=== PATIENT | female | born 1990 | race Two or more races ===

== ENCOUNTER 2016-12-01 18:14 | Emergency (ER) | payer SELFPAY ==
--- NOTE | 2016-12-01 19:13 | ER Document Report ---
ED GI/ - General Chief Complaint: Flank Pain Stated Complaint: RIGHT SIDE PAIN Time Seen by Provider: 12/01/16 18:29 Mode of Arrival: Ambulatory Information source: Patient TRAVEL OUTSIDE OF THE [place] IN LAST 30 DAYS: No - HPI Patient complains to provider of: Dysuria, Flank pain Onset: Other - 2-3 days Timing/Duration: Persistent Quality of pain: Achy Severity at maximum: Moderate Severity in ED: Moderate Location: Right flank Associated symptoms: Dysuria, Urinary hesitancy, Urinary frequency, Urinary urgency Exacerbated by: Denies Relieved by: Denies Similar symptoms previously: No Recently seen / treated by doctor: No Notes: 12/01/16 19:12 Patient is a 25-year-old female presenting to the emergency room today complaining of dysuria with urinary frequency and urgency, states it feels as though she is going to urinate on herself if she does not get to the bathroom quickly enough, symptoms have been going on for the past 2-3 days, she denies any fever, no vaginal discharge, no nausea, vomiting or diarrhea - Related Data Allergies/Adverse Reactions: iodine [Iodine] Adverse Reaction (Verified 12/01/16 18:22) swelling Past Medical History - General Information source: Patient - Social History Smoking Status: Former Smoker Frequency of alcohol use: Occasional Family History: Arthritis, CAD, CVA, DM, Hyperlipidemia, Hypertension, Malignancy. denies: Thyroid Disfunction - Past Medical History Cardiac Medical History: Reports: Hx Hypertension - pre eclampsia Neurological Medical History: Reports: Hx Migraine Renal/ Medical History: Denies: Hx Peritoneal Dialysis GI Medical History: Reports: Hx Gastritis, Hx Colonoscopy Psychiatric Medical History: Reports: Hx Anxiety, Hx Depression Past Surgical History: Reports: Hx Oral Surgery - wisdom - Immunizations Hx Diphtheria, Pertussis, Tetanus Vaccination: Yes Review of Systems - Review of Systems Constitutional: No symptoms reported EENT: No symptoms reported Cardiovascular: No symptoms reported Respiratory: No symptoms reported Gastrointestinal: No symptoms reported Genitourinary: See HPI Female Genitourinary: No symptoms reported Musculoskeletal: No symptoms reported Skin: No symptoms reported Hematologic/Lymphatic: No symptoms reported Neurological/Psychological: No symptoms reported -: Yes All other systems reviewed and negative Physical Exam - Vital signs Vitals: Temp Pulse Resp BP Pulse Ox 98.4 F 69 14 121/62 99 12/01/16 18:23 12/01/16 18:23 12/01/16 18:23 12/01/16 18:23 12/01/16 18:23 - Notes Notes: - General General appearance: Appears well, Alert In distress: None - HEENT Head: Normocephalic, Atraumatic Eyes: Normal Conjunctiva: Normal Extraocular movements intact: Yes Eyelashes: Normal Pupils: PERRL - Respiratory Respiratory status: No respiratory distress - Cardiovascular Rhythm: Regular - Abdominal Inspection: Normal - Back Back: Normal - Extremities General upper extremity: Normal inspection General lower extremity: Normal inspection - Neurological Neuro grossly intact: Yes Orientation: AAOx4 Miguel Coma Scale Eye Opening: Spontaneous [place] Coma Scale Verbal: Oriented [place] Coma Scale Motor: Obeys Commands [place] Coma Scale Total: 15 - Psychological Associated symptoms: Normal affect, Normal mood - Skin Skin Temperature: Warm Skin Moisture: Dry Skin Color: Normal Course - Re-evaluation Re-evalutation: 12/01/16 19:39 Patient symptoms are consistent with a urinary tract infection, urinalysis confirms this, she will be discharged with antibiotics and instructions for follow-up, advised to return if symptoms worsen, patient acknowledges understanding and agreement with this plan - Vital Signs Vital signs: Temp Pulse Resp BP Pulse Ox 98.4 F 69 14 121/62 99 12/01/16 18:23 12/01/16 18:23 12/01/16 18:23 12/01/16 18:23 12/01/16 18:23 - Laboratory Laboratory results interpreted by me: 12/01/16 18:57 Urine Blood LARGE H Ur Leukocyte Esterase MODERATE H Discharge - Discharge Clinical Impression: Urinary tract infection Qualifiers: Urinary tract infection type: site unspecified Hematuria presence: without hematuria Qualified Code(s): N39.0 - Urinary tract infection, site not specified Condition: Stable Disposition: HOME, SELF-CARE Instructions: Cephalexin ([facility]), Urinary Tract Infection ([facility]) Additional Instructions: Follow up with your primary care provider in one to 2 days. Return to the emergency room immediately if symptoms worsen or any additional concerns. Prescriptions: Cephalexin Monohydrate [Keflex 500 mg Capsule] 500 mg PO BID #20 capsule
[2016-12-01 19:29] LABS: APPEARANCE,URINE SLIGHTLY-CLOUDY; BILIRUBIN,URINE NEGATIVE (NEGATIVE); GLUCOSE, URINE NEGATIVE (NEGATIVE); KETONES,URINE NEGATIVE (NEGATIVE); LEUKOCYTE ESTERASE,URINE MODERATE (NEGATIVE); NITRITE,URINE NEGATIVE (NEGATIVE); PROTEIN,URINE NEGATIVE (NEGATIVE); UROBILINOGEN,URINE NEGATIVE mg/dL (<2.0)
[2016-12-01] MEDS ORDERED: CEPHALEXIN 500 MG CAPSULE PO ONE (19:40)
[2016-12-01 20:04] VITALS: BP 123/75
== END 2016-12-01 20:02 | disposition home or self-care (01) ==
LOC: ER 18:14
DX: N39.0 Urinary tract infection, site not specified (principal); Z87.891 Personal history of nicotine dependence
CPT/HCPCS: 81001; 87086; 87088; 87186; 99284

== ENCOUNTER 2017-03-21 14:58 | Emergency (ER) | payer SELFPAY ==
[2017-03-21 15:07] VITALS: BP 116/66
--- NOTE | 2017-03-21 15:59 | ER Document Report ---
ED Medical Screen (RME) - General Chief Complaint: Shortness Of Breath Stated Complaint: COUGH,CONGESTION,EAR PAIN Time Seen by Provider: 03/21/17 15:54 TRAVEL OUTSIDE OF THE [place] IN LAST 30 DAYS: No - HPI Notes: 03/21/17 15:55 Patient is a 26-year-old female with no significant past medical history who presents to the ED complaining of a dry nonproductive cough, nasal congestion/ discharge, decreased p.o. intake, hoarseness, ears popping and clicking 10 days. Patient states that over the last several days her illness began to worsen especially the cough. Pt did have some body ache and fever initially. She is urinating normally and having normal bowel movements. She has been using [id number] meds with minimal relief. Denies any headache, current fever, neck pain, sore throat, chest pain, palpitations, syncope, shortness of breath, wheeze, dyspnea, abdominal pain, nausea/vomiting/diarrhea, urinary retention, dysuria, hematuria, or rash. I have treated and performed a rapid initial assessment of this patient. A comprehensive ED assessment and evaluation of the patient, analysis of test results and completion of medical decision making process will be conducted by additional ED providers. - Related Data Allergies/Adverse Reactions: iodine [Iodine] Adverse Reaction (Verified 03/21/17 15:00) swelling Past Medical History - Past Medical History Cardiac Medical History: Reports: Hx Hypertension - pre eclampsia Neurological Medical History: Reports: Hx Migraine Renal/ Medical History: Denies: Hx Peritoneal Dialysis GI Medical History: Reports: Hx Gastritis, Hx Colonoscopy Psychiatric Medical History: Reports: Hx Anxiety, Hx Depression Past Surgical History: Reports: Hx Oral Surgery - wisdom - Immunizations Hx Diphtheria, Pertussis, Tetanus Vaccination: Yes Physical Exam - Vital signs Vitals: Temp Pulse Resp BP Pulse Ox 98.6 F 59 L 16 116/66 98 03/21/17 15:06 03/21/17 15:06 03/21/17 15:06 03/21/17 15:06 03/21/17 15:06 - HEENT Pharynx: Normal. No: Blood in hypopharynx, Erythema, Exudate, Peritonsillar abscess, Post nasal drainage, Retropharyngeal abscess, Tonsillar hypertrophy, Uvular edema, Potential airway comprom., Other - Respiratory Respiratory status: No respiratory distress Breath sounds: Normal - Cardiovascular Rhythm: Regular Heart sounds: Normal auscultation Course - Vital Signs Vital signs: Temp Pulse Resp BP Pulse Ox 98.6 F 59 L 16 116/66 98 03/21/17 15:06 03/21/17 15:06 03/21/17 15:06 03/21/17 15:06 03/21/17 15:06
--- NOTE | 2017-03-21 16:39 | RADIOLOGY REPORT (SQ) ---
EXAM DESCRIPTION: CHEST PA/LAT COMPLETED DATE/TIME: 03/21/2017 4:33 pm REASON FOR STUDY: cough COMPARISON: 10/19/2011 EXAM PARAMETERS: NUMBER OF VIEWS: two views TECHNIQUE: Digital Frontal and Lateral radiographic views of the chest acquired. RADIATION DOSE: NA LIMITATIONS: none FINDINGS: LUNGS AND PLEURA: No opacities, masses or pneumothorax. No pleural effusion. MEDIASTINUM AND HILAR STRUCTURES: No masses or contour abnormalities. HEART AND VASCULAR STRUCTURES: Heart normal size. No evidence for failure. BONES: No acute findings. HARDWARE: None in the chest. OTHER: No other significant finding. IMPRESSION: NO SIGNIFICANT RADIOGRAPHIC FINDING IN THE CHEST. TECHNICAL DOCUMENTATION: JOB ID: [id number] [employer]- All Rights Reserved
[2017-03-21] MEDS ORDERED: DEXAMETHASONE SOD PHOS INJ 10 MG/1 ML VIAL IM ONE (16:58)
--- NOTE | 2017-03-21 17:03 | ER Document Report ---
ED Respiratory Problem - General Chief Complaint: Shortness Of Breath Stated Complaint: COUGH,CONGESTION,EAR PAIN Time Seen by Provider: 03/21/17 15:54 Mode of Arrival: Ambulatory Information source: Patient TRAVEL OUTSIDE OF THE [place] IN LAST 30 DAYS: No - HPI Patient complains to provider of: Cough Onset: Last week Duration: Continuous Severity: Moderate Notes: Patient arrives with complaints of cough, body aches, mild sore throat with hoarse voice, nausea for the last week or so. She does state that she has felt hot but never actually took her temperature to see if she has a fever. She occasionally has some shortness of breath if she is coughing a lot, but denies any shortness of breath currently. She denies any chest pain currently. She denies any vomiting, diarrhea, no abdominal pain. She denies any rashes. She denies any known medical problems and takes no daily medications. She denies any recent long trips or surgeries, leg pain or swelling, hormone use, cancer, history of DVT or PE. She denies any other complaints at this time. - Related Data Allergies/Adverse Reactions: iodine [Iodine] Adverse Reaction (Verified 03/21/17 15:00) swelling Past Medical History - Social History Smoking Status: Unknown if Ever Smoked Family History: Arthritis, CAD, CVA, DM, Hyperlipidemia, Hypertension, Malignancy. denies: Thyroid Disfunction - Past Medical History Cardiac Medical History: Reports: Hx Hypertension - pre eclampsia Neurological Medical History: Reports: Hx Migraine Renal/ Medical History: Denies: Hx Peritoneal Dialysis GI Medical History: Reports: Hx Gastritis, Hx Colonoscopy Psychiatric Medical History: Reports: Hx Anxiety, Hx Depression Past Surgical History: Reports: Hx Oral Surgery - wisdom - Immunizations Hx Diphtheria, Pertussis, Tetanus Vaccination: Yes Review of Systems - Review of Systems -: Yes All other systems reviewed and negative Physical Exam - Vital signs Vitals: Temp Pulse Resp BP Pulse Ox 98.6 F 59 L 16 116/66 98 03/21/17 15:06 03/21/17 15:06 03/21/17 15:06 03/21/17 15:06 03/21/17 15:06 - Notes Notes: GENERAL: alert, cooperative, nontoxic, no distress. HEAD: normocephalic, atraumatic EYES: conjunctiva pink without discharge, no external redness or swelling. EARS: no external swelling, no external redness, no mastoid redness, swelling, tenderness. Ear canals are clear without swelling or drainage. TMs pearly martinez , no redness, no bulging, normal landmarks, no perforation. Clear effusions behind both TMs. NOSE: atraumatic, no external swelling. clear rhinorrhea noted. MOUTH/THROAT: mucous membranes moist and pink, posterior pharynx without erythema, swelling, exudate. No trismus or drooling. Hoarse voice noted. NECK: soft, supple, full range of motion, no meningismus. CHEST: no distress, lungs clear and equal throughout. No wheezing, rales, rhonchi. CARDIAC: regular rate and rhythm, no murmur, normal capillary refill, normal pulses. No peripheral edema noted. BACK: full range of motion, no CVA tenderness. EXTREMITIES: full range of motion of all extremities. No redness, no swelling. NEURO: alert and oriented &Ox3, no focal deficits, full range of motion of all extremities. PYSCH: appropriate mood, affect. Patient is cooperative. SKIN: pink, warm, dry, no rash. Course - Re-evaluation Re-evalutation: 03/21/17 17:01 The patient is nontoxic appearing with stable vitals. The patient's had flulike symptoms along with cough and hoarse voice for the last week. She is afebrile at this time. No trismus or drooling. No sign of epiglottitis, peritonsillar abscess, streptococcal pharyngitis. She does have a slightly hoarse voice. Chest x-ray shows no acute abnormality per the radiologist. The patient likely has viral laryngitis. Patient is PERC rule negative and PE is very unlikely in this patient, therefore no further PE workup is required at this time. Her symptoms are infectious in nature. She will be given a dose of Decadron in the emergency department and will be discharged home with instructions to continue taking ibuprofen and a prescription for Tessalon Perles she can take as needed for cough. She will be instructed to follow-up if not improving in the next 3-5 days, sooner for increasing symptoms, significant pain, high fever, persistent vomiting, difficulty breathing or swallowing, or for any further concerns. The patient's emergency department workup and current diagnosis were explained to the patient and or family. Follow-up instructions were provided. Medications if prescribed were discussed. Instructions for when to return to the emergency department including specific worrisome symptoms were discussed with the patient and/or family. - Vital Signs Vital signs: Temp Pulse Resp BP Pulse Ox 98.6 F 59 L 16 116/66 98 03/21/17 15:06 03/21/17 15:06 03/21/17 15:06 03/21/17 15:06 03/21/17 15:06 - Diagnostic Test Radiology reviewed: Image reviewed, Reports reviewed - Chest x-ray shows no acute abnormality per the radiologist Discharge - Discharge Clinical Impression: Laryngitis Condition: Stable Disposition: HOME, SELF-CARE Instructions: Laryngitis ([facility]) Additional Instructions: Take medications as prescribed. Continue to take Tylenol and/or Motrin as needed for pain. Drink plenty of fluids. Follow-up with your doctor if not better in 3-5 days, sooner for worsening symptoms, significantly high fever, difficulty breathing or swallowing, drooling, or for any further concerns. Prescriptions: Benzonatate [Tessalon Perle 100 mg Capsule] 100 mg PO Q8HP PRN #20 cap PRN Reason: Forms: Smoking Cessation Education Referrals: [facility] [Provider Group] - Follow up as needed
== END 2017-03-21 17:37 | disposition home or self-care (01) ==
LOC: ER 14:58
DX: J04.0 Acute laryngitis (principal); J02.9 Acute pharyngitis, unspecified; R05 Cough; R49.0 Dysphonia; R11.0 Nausea
CPT/HCPCS: 99283; 96372; 71046; J1100

== ENCOUNTER 2017-06-01 14:05 | Emergency (ER) | payer SELFPAY ==
[2017-06-01 14:23] VITALS: BP 107/49
--- NOTE | 2017-06-01 16:01 | ER Document Report ---
HPI - HPI Patient complains to provider of: right chest wall pain Pain Level: 4 Context: Patient is a 26-year-old female presents emergency department complaining of right chest wall pain. She states that she noticed it approximately 5 days ago is worse with right arm movement and deep inhalation. She describes it as a constant ache with intermittent sharp stabbing quality that is worse on inhalation and with certain positions of her arm. She denies any shortness of breath, dyspnea on exertion, dizziness, near syncope, productive cough, fevers or chills. Patient is a non-smoker, denies any hormone replacement, recent travel or recent surgery. - RESPIRATORY Respiratory: REPORTS: Coughing - productive - REPRODUCTIVE Reproductive: DENIES: : Past Medical History - Social History Smoking Status: Never Smoker Chew tobacco use (# tins/day): No Frequency of alcohol use: Social Drug Abuse: None Family History: Arthritis, CAD, CVA, DM, Hyperlipidemia, Hypertension, Malignancy. denies: Thyroid Disfunction Patient has suicidal ideation: No Patient has homicidal ideation: No - Past Medical History Cardiac Medical History: Reports: Hx Hypertension - pre eclampsia Neurological Medical History: Reports: Hx Migraine Renal/ Medical History: Denies: Hx Peritoneal Dialysis GI Medical History: Reports: Hx Gastritis, Hx Colonoscopy Psychiatric Medical History: Reports: Hx Anxiety, Hx Depression Past Surgical History: Reports: Hx Oral Surgery - wisdom - Immunizations Hx Diphtheria, Pertussis, Tetanus Vaccination: Yes Vertical Provider Document - CONSTITUTIONAL Agree With Documented VS: Yes Notes: PHYSICAL EXAM GENERAL: Alert, interacts well. LUNGS: Clear to auscultation bilaterally, no wheezes, rales, or rhonchi. No respiratory distress. Right trapezius tender and pain reproducible with range of motion HEART: Regular rate and rhythm. No murmurs, gallops, or rubs. ABDOMEN: Soft, nondistended, nontender. No guarding, rebound, or rigidity.. Bowel sounds present in all 4 quadrants. EXTREMITIES: Moves all 4 extremities spontaneously. No edema, radial and dorsalis pedis pulses 2/4 bilaterally. No cyanosis. NEUROLOGICAL: Alert and oriented x4. Normal speech. PSYCH: Normal affect, normal mood. SKIN: Warm, dry, normal turgor. No rashes or lesions noted. - INFECTION CONTROL TRAVEL OUTSIDE OF THE [place] IN LAST 30 DAYS: No Course - Re-evaluation Re-evalutation: 06/01/17 17:24 Patient is a 26-year-old female is hemodynamically stable, no acute distress and afebrile. Patient states that she has not had a period since February and she has not tested positive in the past until 15 weeks in her . She states that she would like definitive blood work did show she is . Beta -hCG did test positive in the serum however her quantitative levels were significantly low for a last menstrual period in February. Discussed with patient that she should keep her appointment to follow-up with the health department in 6 weeks if she still does not have a menstrual period. regarding her chest discomfort consistent with a musculoskeletal strain given, pain is reproducible palpation with movement. Chest x-ray without any evidence of underlying rib fractures, pneumothoraces. - Vital Signs Vital signs: Temp Pulse Resp BP Pulse Ox 97.9 F 73 16 107/49 L 97 06/01/17 14:19 06/01/17 14:19 06/01/17 14:19 06/01/17 14:19 06/01/17 14:19 - Diagnostic Test Radiology reviewed: Image reviewed, Reports reviewed Discharge - Discharge Clinical Impression: Back pain Qualifiers: Back pain location: thoracic back pain Chronicity: acute Back pain laterality: right Qualified Code(s): M54.6 - Pain in thoracic spine Condition: Good Disposition: HOME, SELF-CARE Instructions: Muscle Strain ([facility]), Warm Packs ([facility]) [facility] - Follow up in 1 month
--- NOTE | 2017-06-01 17:03 | RADIOLOGY REPORT (SQ) ---
EXAM DESCRIPTION: CHEST 2 VIEWS COMPLETED DATE/TIME: 06/01/2017 4:53 pm REASON FOR STUDY: pleuritic chest pain COMPARISON: 03/21/2017 EXAM PARAMETERS: NUMBER OF VIEWS: two views TECHNIQUE: Digital Frontal and Lateral radiographic views of the chest acquired. RADIATION DOSE: NA LIMITATIONS: none FINDINGS: LUNGS AND PLEURA: No opacities, masses or pneumothorax. No pleural effusion. MEDIASTINUM AND HILAR STRUCTURES: No masses or contour abnormalities. HEART AND VASCULAR STRUCTURES: Heart normal size. No evidence for failure. BONES: No acute findings. HARDWARE: None in the chest. OTHER: No other significant finding. IMPRESSION: NO ACUTE RADIOGRAPHIC FINDING IN THE CHEST. TECHNICAL DOCUMENTATION: JOB ID: [id number] [employer]- All Rights Reserved Reading location - IP/workstation name: [email or web address]
[2017-06-01] MEDS ORDERED: ACETAMINOPHEN 325 MG TABLET PO ONE (17:26)
== END 2017-06-01 17:33 | disposition home or self-care (01) ==
LOC: ER 14:05
DX: M54.6 Pain in thoracic spine (principal); R07.9 Chest pain, unspecified; R05 Cough
CPT/HCPCS: 36415; 71046; 81025; 84702; 99284

== ENCOUNTER → 2017-06-23 | Outpatient (CLI) | payer SELFPAY ==
--- NOTE | 2017-06-23 15:27 | RADIOLOGY REPORT (SQ) ---
EXAM DESCRIPTION: U/S OB TRANSVAGINAL W/O DOP COMPLETED DATE/TIME: 06/23/2017 3:16 pm REASON FOR STUDY: Z34.81 ENCOUNTER FOR SUPRVSN OF NORMAL , FIRST TRIMESTER Z34.81 ENCOUNTE R FOR SUPRVSN OF NORMAL , FIRST TRIM COMPARISON: None. TECHNIQUE: Transvaginal static and realtime grayscale images acquired of the pelvis. Additional samina cted spectral and color Doppler images recorded. All images stored on PACs. bHCG: Not available. LIMITATIONS: None. FINDINGS: FETUS: Living intrauterine . EGA: 6 week 4 day. DANI: 02/12/2018. FHR: 120 beats per minute. SUBCHORIONIC BLEED: No. SIZE OF BLEED: Not applicable. UTERUS: No masses. No anomalies. CERVICAL LENGTH: 3.3 cm. Closed. RIGHT ADNEXA: Normal ovary with normal vascular flow. No adnexal free fluid. No adnexal masses. LEFT ADNEXA: Normal ovary with normal vascular flow. No adnexal free fluid. No adnexal masses. FREE FLUID: None. OTHER: No other significant finding. IMPRESSION: LIVING INTRAUTERINE . EGA 6 WEEK 4 DAY. Trimester of : First - 0 to 13 weeks. TECHNICAL DOCUMENTATION: JOB ID: [id number] [employer]- All Rights Reserved Reading location - IP/workstation name: [email or web address]
== END ==
LOC: RAD 14:11
PROVIDERS: ATTEND Nurse Practitioner Women's Health
DX: Z34.81 Encounter for supervision of other normal pregnancy, first trimester (principal)
CPT/HCPCS: 76817

== ENCOUNTER 2017-12-14 00:30 | Outpatient (CLI) | payer MEDICAID ==
[2017-12-14 01:02] LABS: APPEARANCE,URINE CLEAR; BILIRUBIN,URINE NEGATIVE (NEGATIVE); COLOR,URINE STRAW; GLUCOSE, URINE NEGATIVE (NEGATIVE); KETONES,URINE NEGATIVE (NEGATIVE); LEUKOCYTE ESTERASE,URINE NEGATIVE (NEGATIVE); NITRITE,URINE NEGATIVE (NEGATIVE); PROTEIN,URINE NEGATIVE (NEGATIVE); URINE SPECIFIC GRAVITY 1.005; UROBILINOGEN,URINE NEGATIVE mg/dL (<2.0)
[2017-12-14] MEDS ORDERED: HYDROXYZINE PAMOATE 50 MG CAPSULE PO ONE (01:34)
[2017-12-14] MEDS ORDERED: HYDROXYZINE PAMOATE 50 MG CAPSULE ONE (01:40)
[2017-12-14 05:55] LABS: URINE AMPHETAMINES SCREEN NEGATIVE; URINE BARBITURATES SCREEN NEGATIVE; URINE BENZODIAZEPINES SCREEN NEGATIVE; URINE COCAINE SCREEN NEGATIVE; URINE MARIJUANA (THC) SCREEN NEGATIVE; URINE METHADONE SCREEN NEGATIVE; URINE PHENCYCLIDINE SCREEN NEGATIVE
== END 2017-12-14 01:47 | disposition home or self-care (01) ==
LOC: LC 00:30
PROVIDERS: ATTEND Obstetrics & Gynecology
PROC: 4A1HXCZ Monitoring of Products of Conception, Cardiac Rate, External Approach (ICD-10-PCS; principal; 2017-12-14)
DX: O26.893 Other specified pregnancy related conditions, third trimester (principal); R10.9 Unspecified abdominal pain; Z3A.31 31 weeks gestation of pregnancy
CPT/HCPCS: 59899; 81001; 80307; J3490

== ENCOUNTER 2018-01-24 20:20 | Outpatient (CLI) | payer MEDICAID ==
[2018-01-24 21:00] LABS: APPEARANCE,URINE SLIGHTLY-CLOUDY; BILIRUBIN,URINE NEGATIVE (NEGATIVE); COLOR,URINE STRAW; GLUCOSE, URINE NEGATIVE (NEGATIVE); KETONES,URINE NEGATIVE (NEGATIVE); LEUKOCYTE ESTERASE,URINE NEGATIVE (NEGATIVE); NITRITE,URINE NEGATIVE (NEGATIVE); PROTEIN,URINE NEGATIVE (NEGATIVE); URINE SPECIFIC GRAVITY 1.008; UROBILINOGEN,URINE NEGATIVE mg/dL (<2.0)
[2018-01-24 21:26] LABS: URINE AMPHETAMINES SCREEN NEGATIVE; URINE BARBITURATES SCREEN NEGATIVE; URINE BENZODIAZEPINES SCREEN NEGATIVE; URINE COCAINE SCREEN NEGATIVE; URINE MARIJUANA (THC) SCREEN NEGATIVE; URINE METHADONE SCREEN NEGATIVE; URINE PHENCYCLIDINE SCREEN NEGATIVE
--- NOTE | 2018-01-24 21:35 | Non Stress Test Report ---
Non Stress Test Datetime Report Generated by CPN: 01/24/2018 21:35 DEMOGRAPHIC EGA NST: 37.2 INDICATION Indication for Study: Ordered by Provider Indication for Study (NST) Other: LC MONITORING Monitor Explained: Monitor Explained; Test Explained; Patient Verbalized Understanding Time on Monitor: 01/24/2018 20:41 Time off Monitor: 01/24/2018 21:11 NST Duration: 30 NST INTERVENTIONS NST Interventions: PO Hydration Physician Notified NST: Torres BABY A: [id number] BABY A Movement : Present Contraction Frequency : irritability FHR Baseline : 130 Accelerations : 15X15 Decelerations : None Variability : Moderate 6-25bpm NST Review: Meets Criteria for Reactive NST NST Review and Verified By : Melvin Villarreal RN NST Results: Reactive NST REPORT Report Trigger: Send Report
== END 2018-01-24 21:39 | disposition home or self-care (01) ==
LOC: LC 20:20
PROVIDERS: ATTEND Student in an Organized Health Care Education/Training Program
PROC: 4A1HXCZ Monitoring of Products of Conception, Cardiac Rate, External Approach (ICD-10-PCS; principal; 2018-01-24)
DX: O47.1 False labor at or after 37 completed weeks of gestation (principal); Z3A.37 37 weeks gestation of pregnancy
CPT/HCPCS: 59025; 80307; 81005

== ENCOUNTER 2018-02-05 15:59 | Outpatient (CLI) | payer MEDICAID ==
[2018-02-05 16:40] LABS: APPEARANCE,URINE SLIGHTLY-CLOUDY; BILIRUBIN,URINE NEGATIVE (NEGATIVE); COLOR,URINE STRAW; GLUCOSE, URINE NEGATIVE (NEGATIVE); KETONES,URINE NEGATIVE (NEGATIVE); LEUKOCYTE ESTERASE,URINE NEGATIVE (NEGATIVE); NITRITE,URINE NEGATIVE (NEGATIVE); PROTEIN,URINE NEGATIVE (NEGATIVE); URINE SPECIFIC GRAVITY 1.008; UROBILINOGEN,URINE NEGATIVE mg/dL (<2.0)
--- NOTE | 2018-02-05 16:57 | Non Stress Test Report ---
Non Stress Test Datetime Report Generated by CPN: 02/05/2018 16:57 DEMOGRAPHIC EGA NST: 39.0 INDICATION Indication for Study: Ordered by Provider MONITORING Monitor Explained: Monitor Explained; Test Explained; Patient Verbalized Understanding Time on Monitor: 02/05/2018 16:25 Time off Monitor: 02/05/2018 16:55 NST Duration: 30 NST INTERVENTIONS NST Interventions: PO Hydration; Reposition Patient Physician Notified NST: DrBen Torres BABY A: [id number] BABY A Movement : Present Contraction Frequency : irregular FHR Baseline : 130 Accelerations : 15X15 Decelerations : None Variability : Moderate 6-25bpm NST Review: Meets Criteria for Reactive NST NST Review and Verified By : KRAIG Mclaughlin Results: Reactive NST COMMENTS NST Comments: Provider on unit NST REPORT Report Trigger: Send Report
[2018-02-05 17:04] LABS: URINE AMPHETAMINES SCREEN NEGATIVE; URINE BARBITURATES SCREEN NEGATIVE; URINE BENZODIAZEPINES SCREEN NEGATIVE; URINE COCAINE SCREEN NEGATIVE; URINE METHADONE SCREEN NEGATIVE; URINE PHENCYCLIDINE SCREEN NEGATIVE
[2018-02-05 17:06] LABS: URINE MARIJUANA (THC) SCREEN UNCONFIRMED POSITIVE
== END 2018-02-05 17:09 | disposition home or self-care (01) ==
LOC: LC 15:59
PROVIDERS: ATTEND Student in an Organized Health Care Education/Training Program
PROC: 4A1HXCZ Monitoring of Products of Conception, Cardiac Rate, External Approach (ICD-10-PCS; principal; 2018-02-05)
DX: O47.1 False labor at or after 37 completed weeks of gestation (principal); Z3A.39 39 weeks gestation of pregnancy
CPT/HCPCS: 59025; 80307; 81005; 84112

== ENCOUNTER 2018-02-07 22:34 | Outpatient (CLI) | payer MEDICAID ==
--- NOTE | 2018-02-07 23:17 | Non Stress Test Report ---
Non Stress Test Datetime Report Generated by CPN: 02/07/2018 23:17 DEMOGRAPHIC Test Number: 3 EGA NST: 39.2 INDICATION Indication for Study: Ordered by Provider MONITORING Monitor Explained: Monitor Explained; Test Explained; Patient Verbalized Understanding Time on Monitor: 02/07/2018 22:48 Time off Monitor: 02/07/2018 23:09 NST Duration: 21 NST INTERVENTIONS NST Interventions: PO Hydration; Reposition Patient Physician Notified NST: Dr. Layne BABY A: [id number] BABY A Movement : Present Contraction Frequency : 4-5 FHR Baseline : 120 Accelerations : 15X15 Decelerations : None Variability : Moderate 6-25bpm NST Review: Meets Criteria for Reactive NST NST Review and Verified By : Loi Shafer RN NST Results: Reactive NST REPORT Report Trigger: Send Report
[2018-02-07 23:22] LABS: APPEARANCE,URINE SLIGHTLY-CLOUDY; BILIRUBIN,URINE NEGATIVE (NEGATIVE); COLOR,URINE YELLOW; GLUCOSE, URINE NEGATIVE (NEGATIVE); KETONES,URINE NEGATIVE (NEGATIVE); LEUKOCYTE ESTERASE,URINE NEGATIVE (NEGATIVE); NITRITE,URINE NEGATIVE (NEGATIVE); PROTEIN,URINE NEGATIVE (NEGATIVE); URINE SPECIFIC GRAVITY 1.014; UROBILINOGEN,URINE NEGATIVE mg/dL (<2.0)
[2018-02-07 23:36] LABS: URINE AMPHETAMINES SCREEN NEGATIVE; URINE BARBITURATES SCREEN NEGATIVE; URINE BENZODIAZEPINES SCREEN NEGATIVE; URINE COCAINE SCREEN NEGATIVE; URINE METHADONE SCREEN NEGATIVE; URINE PHENCYCLIDINE SCREEN NEGATIVE
[2018-02-07 23:38] LABS: URINE MARIJUANA (THC) SCREEN UNCONFIRMED POSITIVE
[2018-02-08] MEDS ORDERED: HYDROXYZINE PAMOATE 50 MG CAPSULE PO ONE (01:28)
[2018-02-08] MEDS ORDERED: HYDROXYZINE PAMOATE 50 MG CAPSULE ONE (01:30)
== END 2018-02-08 01:44 | disposition home or self-care (01) ==
LOC: LC 22:34
PROVIDERS: ATTEND Obstetrics & Gynecology
PROC: 4A1HXCZ Monitoring of Products of Conception, Cardiac Rate, External Approach (ICD-10-PCS; principal; 2018-02-07)
DX: O47.1 False labor at or after 37 completed weeks of gestation (principal); Z3A.39 39 weeks gestation of pregnancy
CPT/HCPCS: 59025; 81005; 80307; G0480 ×2; J3490; 80349

== ENCOUNTER 2018-02-08 03:00 | Outpatient (CLI) | payer MEDICAID ==
[2018-02-08] MEDS ORDERED: OXYTOCIN 10 UNIT/ML VIAL ONE (03:05)
[2018-02-08] MEDS ORDERED: LIDOCAINE 1% INJ-PF (10 MG/ML) 30 ML SDV ONE (03:05)
[2018-02-08] MEDS ORDERED: MISOPROSTOL 0.2 MG TABLET ONE (03:05)
[2018-02-08] MEDS ORDERED: OXYTOCIN/NORMAL SALINE 0 UNIT/0 ML RTUINJ ONE (03:06)
[2018-02-08] MEDS ORDERED: PENICILLIN G-K 5 MILLION UNIT VIAL ONE (03:06)
--- NOTE | 2018-02-08 05:46 | Non Stress Test Report ---
Non Stress Test Datetime Report Generated by CPN: 02/08/2018 05:45 DEMOGRAPHIC EGA NST: 39.3 INDICATION Indication for Study: Ordered by Provider VITAL SIGNS Temperature - NST: 98.0 MONITORING Monitor Explained: Monitor Explained; Test Explained; Patient Verbalized Understanding Time on Monitor: 02/08/2018 03:15 Time off Monitor: 02/08/2018 05:43 NST Duration: 148 NST INTERVENTIONS NST Interventions: PO Hydration; Reposition Patient Physician Notified NST: Dr. Layne BABY A Movement : Present Contraction Frequency : 3-5 FHR Baseline : 135 Accelerations : 15X15 Decelerations : None Variability : Moderate 6-25bpm NST Review: Meets Criteria for Reactive NST NST Review and Verified By : Loi Shafer RN NST Results: Reactive NST REPORT Report Trigger: Send Report
== END 2018-02-08 05:25 | disposition home or self-care (01) ==
LOC: LC 03:00
PROVIDERS: ATTEND Obstetrics & Gynecology
PROC: 4A1HXCZ Monitoring of Products of Conception, Cardiac Rate, External Approach (ICD-10-PCS; principal; 2018-02-08)
DX: O47.1 False labor at or after 37 completed weeks of gestation (principal); Z3A.39 39 weeks gestation of pregnancy
CPT/HCPCS: J2540; J2590; J3490

== ENCOUNTER 2018-02-08 10:22 | Inpatient (IN) | payer MEDICAID ==
[2018-02-08] MEDS ORDERED: OXYTOCIN/NORMAL SALINE 20 UNIT/1,000 ML RTUINJ ONE (10:36)
[2018-02-08] MEDS ORDERED: MISOPROSTOL 0.2 MG TABLET ONE (10:36)
[2018-02-08] MEDS ORDERED: LIDOCAINE 1% INJ-PF (10 MG/ML) 30 ML SDV ONE (10:36)
[2018-02-08] MEDS ORDERED: PENICILLIN G-K 5 MILLION UNIT VIAL ONE ×2 (10:38→14:41)
[2018-02-08] MEDS ORDERED: FENTANYL/BUPIVACAINE/NS/PF 300 MCG/150 ML RTUINJ EPI ONE (11:15)
[2018-02-08] MEDS ORDERED: BUPIVACAINE HCL 0.5 % INJ/PF 30 ML SDV ONE (11:15)
[2018-02-08] MEDS ORDERED: EPHEDRINE SULFATE INJ 50 MG/1 ML AMPULE ONE (11:15)
[2018-02-08] MEDS ORDERED: RINGERS SOLUTION,LACTATED 1,000 ML IV PRN (11:23)
[2018-02-08] MEDS ORDERED: PENICILLIN G POTASSIUM 5,000,000 UNIT in DEXTROSE 5%-WATER 100 ML IV ONE (11:23)
[2018-02-08] MEDS ORDERED: RINGERS SOLUTION,LACTATED 1,000 ML IV ONE (11:23)
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
[2018-02-08 12:17] LABS: HEMATOCRIT 33.6 % (36.0-47.0); HEMOGLOBIN 11.9 g/dL (12.0-15.5); MEAN CORPUSCULAR HEMOGLOBIN 31.9 pg (27.0-33.4); MEAN CORPUSCULAR HGB CONC 35.3 g/dL (32.0-36.0); MEAN CORPUSCULAR VOLUME 90 fl (80-97); RED BLOOD COUNT 3.72 10^6/uL (3.72-5.28); RED CELL DISTRIBUTION WIDTH 12.1 % (11.5-14.0); WHITE BLOOD COUNT 14.1 10^3/uL (4.0-10.5)
[2018-02-08 12:37] LABS: PLATELET COUNT 167 10^3/uL (150-450)
[2018-02-08 12:46] LABS: ABSOLUTE LYMPHOCYTES# (MANUAL) 0.8 10^3/uL (0.5-4.7); ABSOLUTE MONOCYTES # (MANUAL) 0.1 10^3/uL (0.1-1.4); ABSOLUTE NEUTROPHILS# (MANUAL) 13.1 10^3/uL (1.7-8.2); BASOPHILS % (MANUAL) 0 % (0-2); EOSINOPHILS % (MANUAL) 0 % (0-6); LYMPHOCYTES % (MANUAL) 6 % (13-45); MONOCYTES % (MANUAL) 1 % (3-13); SEGMENTED NEUTROPHILS % (MAN) 93 % (42-78); TOTAL CELLS COUNTED 100
[2018-02-08 12:47] LABS: PLATELET COMMENT ADEQUATE; POLYCHROMASIA SLIGHT; TOXIC GRANULATION SLIGHT
[2018-02-08] MEDS ORDERED: OXYTOCIN/NORMAL SALINE 20 UNIT/1,000 ML RTUINJ IV PRN ×2 (14:10→15:55)
[2018-02-08] MEDS ORDERED: PENICILLIN G POTASSIUM 2,500,000 UNIT in DEXTROSE 5%-WATER 50 ML IV SCH (15:24)
[2018-02-08] MEDS ORDERED: DIPH/PERTUSS(ACELL)/TETANUS VAC/PF 0.5 ML SYR (>=10YO) IM PRN (15:55)
[2018-02-08] MEDS ORDERED: ACETAMINOPHEN WITH CODEINE #3 TABLET PO PRN (15:55)
[2018-02-08] MEDS ORDERED: ACETAMINOPHEN 325 MG TABLET PO PRN (15:55)
[2018-02-08] MEDS ORDERED: DIBUCAINE 1% OINTMENT 28 GM TP PRN (15:55)
[2018-02-08] MEDS ORDERED: ZOLPIDEM TARTRATE 5 MG TABLET PO PRN (15:55)
[2018-02-08] MEDS ORDERED: PSEUDOEPHEDRINE HCL 30 MG TABLET PO PRN (15:55)
[2018-02-08] MEDS ORDERED: PROMETHAZINE HCL 25 MG SUPP.RECT PR PRN (15:55)
[2018-02-08] MEDS ORDERED: PROMETHAZINE HCL INJ 25 MG/1 ML VIAL IV PRN (15:55)
[2018-02-08] MEDS ORDERED: GLYCERIN/WITCH HAZEL LEAF 1 EACH MED..PAD TP PRN (15:55)
[2018-02-08] MEDS ORDERED: MAGNESIUM HYDROXIDE SUSP 30 ML UDCUP PO PRN (15:55)
[2018-02-08] MEDS ORDERED: PROMETHAZINE HCL 25 MG TABLET PO PRN (15:55)
[2018-02-08] MEDS ORDERED: MEASLES,MUMPS&RUBELLA VACC/PF 0.5 ML VIAL SUBCUT PRN (15:55)
[2018-02-08] MEDS ORDERED: DIPHENHYDRAMINE HCL 25 MG CAPSULE PO PRN (15:55)
[2018-02-08] MEDS ORDERED: NA PHOS,M-B/NA PHOS,DI-BA (ADULT) 133 ML ENEMA PR PRN (15:55)
[2018-02-08] MEDS ORDERED: BENZOCAINE/MENTHOL AEROSOL SPRAY 56 ML TOP PRN (15:55)
[2018-02-08] MEDS ORDERED: ACETAMINOPHEN 325 MG TABLET ONE (16:42)
[2018-02-08] MEDS ORDERED: IBUPROFEN 800 MG TABLET ONE (17:02)
[2018-02-08] MEDS ORDERED: ACETAMINOPHEN 325 MG TABLET PO ONE (17:30)
[2018-02-08] MEDS: FERROUS SULFATE 325 MG TABLET PO SCH (19:07)
[2018-02-08] MEDS: DOCUSATE SODIUM 100 MG CAPSULE PO SCH (19:07)
[2018-02-08] MEDS: FAMOTIDINE 20 MG TABLET PO SCH (22:05)
[2018-02-08] MEDS: IBUPROFEN 800 MG TABLET PO SCH (22:06)
[2018-02-09] MEDS: ACETAMINOPHEN WITH CODEINE #3 TABLET PO PRN ×4 (01:57→21:20)
[2018-02-09] MEDS: IBUPROFEN 800 MG TABLET PO SCH ×3 (05:20→21:19)
[2018-02-09 07:58] LABS: HEMATOCRIT 30.1 % (36.0-47.0); HEMOGLOBIN 10.4 g/dL (12.0-15.5); MEAN CORPUSCULAR HEMOGLOBIN 32.1 pg (27.0-33.4); MEAN CORPUSCULAR HGB CONC 34.7 g/dL (32.0-36.0); MEAN CORPUSCULAR VOLUME 93 fl (80-97); PLATELET COUNT 140 10^3/uL (150-450); RED BLOOD COUNT 3.26 10^6/uL (3.72-5.28); RED CELL DISTRIBUTION WIDTH 12.4 % (11.5-14.0)
[2018-02-09] MEDS: PRENATAL VITAMIN W DHA CAPSULE PO SCH (09:21)
[2018-02-09] MEDS: FAMOTIDINE 20 MG TABLET PO SCH ×2 (09:21→21:19)
[2018-02-09] MEDS: DOCUSATE SODIUM 100 MG CAPSULE PO SCH ×2 (09:21→17:59)
[2018-02-09] MEDS: SENNOSIDES/DOCUSATE 8.6-50 MG 1 EACH TABLET PO SCH (09:21)
[2018-02-09] MEDS: FERROUS SULFATE 325 MG TABLET PO SCH ×2 (09:21→17:59)
--- NOTE | 2018-02-09 12:29 | PDOC PROGRESS REPORT ---
Subjective-OB Progress Note for:: 02/09/18 Subjective: Pt doing well, no concerns. Reports regular diet, voiding well and light bleeding. Physical Exam (OB) Vital Signs: Temp Pulse Resp BP Pulse Ox 97.6 F 69 16 114/59 L 99 02/09/18 08:00 02/09/18 08:00 02/09/18 08:00 02/09/18 08:00 02/09/18 08:00 Intake & Output 02/08/18 02/09/18 02/10/18 06:59 06:59 06:59 Weight 82 kg - Lochia Lochia Amount: Small 10-25 ml Lochia Color: Rubra/Red - Abdomen Description: Soft, Round Hernia Present: No Fundal Description: Firm, Midline Fundal Height: u/u - u/2 Objective-Diagnostic Laboratory: 02/09/18 07:26 02/08/18 02/08/18 02/09/18 11:25 11:25 07:26 WBC 14.1 H 13.0 H RBC 3.72 3.26 L Hgb 11.9 L 10.4 L Hct 33.6 L 30.1 L MCV 90 93 MCH 31.9 32.1 MCHC 35.3 34.7 RDW 12.1 12.4 Plt Count 167 140 L Seg Neutrophils % Not Reportable Lymphocytes % Not Reportable Monocytes % Not Reportable Eosinophils % Not Reportable Basophils % Not Reportable Absolute Neutrophils Not Reportable Absolute Lymphocytes Not Reportable Absolute Monocytes Not Reportable Absolute Eosinophils Not Reportable Absolute Basophils Not Reportable Blood Type O POSITIVE Antibody Screen NEGATIVE Assessment and Plan(PN) - Assessment and Plan (1) Active labor at term Is this a current diagnosis for this admission?: Yes (2) Carrier of group B Streptococcus Is this a current diagnosis for this admission?: Yes (3) Spontaneous rupture of amniotic membranes Is this a current diagnosis for this admission?: Yes (4) Vaginal delivery Is this a current diagnosis for this admission?: Yes - Time Spent with Patient Time with patient: Less than 15 minutes Medications reviewed and adjusted accordingly: Yes - Disposition Anticipated Discharge: Home Within: within 24 hours
[2018-02-10] MEDS: IBUPROFEN 800 MG TABLET PO SCH ×2 (06:54→14:11)
[2018-02-10] MEDS: SENNOSIDES/DOCUSATE 8.6-50 MG 1 EACH TABLET PO SCH (09:33)
[2018-02-10] MEDS: FAMOTIDINE 20 MG TABLET PO SCH (09:33)
[2018-02-10] MEDS: DOCUSATE SODIUM 100 MG CAPSULE PO SCH ×2 (09:33→17:57)
[2018-02-10] MEDS: FERROUS SULFATE 325 MG TABLET PO SCH ×2 (09:33→17:57)
[2018-02-10] MEDS: PRENATAL VITAMIN W DHA CAPSULE PO SCH (09:33)
--- NOTE | 2018-02-10 10:30 | PDOC DISCHARGE SUMMARY ---
Final Diagnosis Discharge Date: 02/10/18 - Final Diagnosis (1) Active labor at term Is this a current diagnosis for this admission?: Yes (2) Spontaneous rupture of amniotic membranes Is this a current diagnosis for this admission?: Yes (3) Vaginal delivery Is this a current diagnosis for this admission?: Yes Discharge Data - Discharge Medication Prescriptions: Acetaminophen with Codeine [Tylenol #3 Tablet] 1 each PO Q4HP PRN #20 tablet PRN Reason: Ibuprofen [Motrin 800 mg Tablet] 800 mg PO Q8HP PRN #90 tablet PRN Reason: Home Medications: Acetaminophen with Codeine [Tylenol #3 Tablet] 1 each PO Q4HP PRN #20 tablet Ibuprofen [Motrin 800 mg Tablet] 800 mg PO Q8HP PRN #90 tablet 02/10/18 Procedures: NST Intrapartum Procedure(s): Spontaneous Vaginal Delivery - Diagnosis Test Laboratory: Temp Pulse Resp BP Pulse Ox 98.0 F 90 16 113/54 L 100 02/10/18 09:01 02/10/18 09:01 02/10/18 09:01 02/10/18 09:01 02/10/18 09:01 02/08/18 02/09/18 11:25 07:26 RBC 3.72 3.26 L Hgb 11.9 L 10.4 L Hct 33.6 L 30.1 L - Discharge information/Instructions Discharge Activity: Balance Activity w/Rest, Pelvic Rest Discharge Diet: Regular Disposition: HOME WITH HOSPICE Follow up with: [facility] in: 4, Weeks
[2018-02-10 16:17] VITALS: BP 113/53
--- NOTE | 2018-02-17 11:28 | Delivery Summary ---
Del Sum A-C Datetime Report Generated by CPN: 02/17/2018 11:27 DELIVERY PERSONNEL DELIVERY PERSONNEL: [id number] Delivery Doctor:: Latha Parish CNM Nurse Storeroom Attendant Certified:: Latha Parish CNM Labor and Delivery Nurse:: Peggy Zarate RN Labor and Delivery Nurse:: Leeanna Garcia RN Nursery Nurse:: Lashonda Jenkins RN Office Rental Clerk/FARM AGENT: Oliva Llanes, ST MATERNAL INFORMATION Delivery Anesthesia: Epidural Medications After Delivery: Pitocin Bolus-Please Comment; Pitocin Drip 20 Units/1000ml NSS Estimated Blood Loss (ml): 200 Maternal Complications: None Provider Comments: live female in vertex OA to SHERLEY at 1551 under epidural anesthesia. Nuchal cord x1 reduced. Terminal meconium. Spontaneous respirations and cry. 3 vessel cord. Apgars 8-9. Cord clamped x2 ater 2 min delay, then cut by FOB. Cord blood obtained. Placenta, membranes, and cord expelled at 1555, [place] presentation. Superficial bilateral abrasions noted-no repair needed. Patient tolerated procedure well. LABOR SUMMARY EDC: 02/12/2018 00:00 No. Babies in Womb: 1 Attempted: No Labor Anesthesia: Epidural LABOR INFORMATION Reason for Induction: Not Applicable Onset of Labor: 02/07/2018 19:00 Complete Dilatation: 02/08/2018 15:15 Oxytocin: Augmentation Group B Beta Strep: Positive Antibiotics # of Doses: 2 Antibiotics Time of Last Dose: 1448 Name of Antibiotic Given: PENICILLIN G Steroids Given: None Reason Steroids Not Administered: Not Applicable MEMBRANES Membranes Rupture Method: Spontaneous Rupture of Membranes: 02/08/2018 10:00 Length of Rupture (hr): 5.85 Amniotic Fluid Color: Clear Amniotic Fluid Amount: Small Amniotic Fluid Amount: None Amniotic Fluid Odor: Normal STAGES OF LABOR Stage 1 hr: 20 Stage 1 min: 15 Stage 2 hr: 0 Stage 2 min: 36 Stage 3 hr: 0 Stage 3 min: 4 Total Time in Labor hr: 20 Total Time in Labor min: 55 VAGINAL DELIVERY Episiotomy: None Laceration #1: Periurethral Laceration Extension #1: N/A Other Laceration: PERIURETHRAL ABRASION Laceration Repair: Not Applicable Laceration Repair Note: No repair needed Sponge Count Correct: N/A Sharps Count Correct: Yes CSECTION DELIVERY Primary Indication: N/A Secondary Indication: N/A CSection Incidence: N/A Labor: N/A Elective: N/A CSection Incision: N/A BABY A INFORMATION Delivery Date/Time: 02/08/2018 15:51 Method of Delivery: Vaginal Method of Delivery: Vaginal Born in Route : No : N/A Forceps: N/A Vacuum Extraction: N/A Shoulder Dystocia : Yes PRESENTATION/POSITION BABY A Presentation: Cephalic Presentation: Cephalic Presentation: Cephalic Presentation: Cephalic Cephalic Presentation: Vertex Vertex Position: Right Occipital Anterior Breech Presentation: N/A PLACENTA INFORMATION BABY A Placenta Delivery Time : 02/08/2018 15:55 Placenta Method of Delivery: Spontaneous Placenta Method of Delivery: Spontaneous Placenta Status: Delivered SCORES BABY A Heart Rate 1 min: >100 bpm Resp Effort 1 min: Good Cry Reflex Irritability 1 min: Cough or Sneeze or Pulls Away Muscle Tone 1 min: Active Motion Color 1 min: Blue/Pale Resuscitation Effort 1 min: Tactile Stimulation SCORE 1 MIN: 8 Heart Rate 5 min: >100 bpm Resp Effort 5 min: Good Cry Reflex Irritability 5 min: Cough or Sneeze or Pulls Away Muscle Tone 5 min: Active Motion Color 5 min: Body [place], Extremities Blue Resuscitation Effort 5 min: Tactile Stimulation SCORE 5 MIN: 9 INFORMATION BABY A Gestational Age at Delivery: 39.3 Gestational Status: Full Term- 39- 40.6 Weeks Outcome : Liveborn Infant Condition : Stable Sex: Female Sex: Female IDENTIFICATION BABY A Verification Date/Time: 02/08/2018 16:05 ID Band Number: [id number] Mother's Name Verified: Yes Infant RN Verifying : DILEEP ZARATE, RN Additional Verifying Personnel: A JANAEDOLORESA CORD INFORMATION BABY A No. Cord Vessels: 3 Nuchal Cord : Around Neck x1, Loose Cord Blood Taken: Yes-For Eval (Mom's Blood Type - or O+) Suction: Mouth; Nose ASSESSMENT BABY A Infant Complications: Multiple Variable Decels Physical Findings at Delivery: Within Normal Limits Respirations: Appears Normal Skin to Skin: Yes Records Section Supervisor/ALS Called : No Infant Care By: JOSIE SO/ DILEEP ZARATE RN Transferred To: Remains with Mother BABY B INFORMATION : N/A SIGNATURES Assignment: Whitley Torres MD Signature: with User ID: [email or web address] : with User ID: [email or web address] : I personally evaluated and examined the patient in conjunction with the MLP and agree with the assessment, treatment plan and disposition. : I personally evaluated and examined the patient in conjunction with the MLP and agree with the assessment, treatment plan and disposition.
== END 2018-02-10 18:06 | disposition hospice, home (50) | DRG 807 ==
LOC: LC 10:22 → LR 10:39 → 2S 18:30
PROVIDERS: ADMIT Student in an Organized Health Care Education/Training Program; ATTEND Student in an Organized Health Care Education/Training Program
PROC: 10E0XZZ Delivery of Products of Conception, External Approach (ICD-10-PCS; principal; 2018-02-08)
PROC: 4A1HXCZ Monitoring of Products of Conception, Cardiac Rate, External Approach (ICD-10-PCS; 2018-02-08)
DX: O99.824 Streptococcus B carrier state complicating childbirth (principal); Z37.0 Single live birth; O99.89 Other specified diseases and conditions complicating pregnancy, childbirth and the puerperium; O71.82 Other specified trauma to perineum and vulva; M06.9 Rheumatoid arthritis, unspecified; O69.81X0 Labor and delivery complicated by cord around neck, without compression, not applicable or unspecified; O76 Abnormality in fetal heart rate and rhythm complicating labor and delivery; O77.0 Labor and delivery complicated by meconium in amniotic fluid; O99.344 Other mental disorders complicating childbirth; Z3A.39 39 weeks gestation of pregnancy; F41.9 Anxiety disorder, unspecified; O99.354 Diseases of the nervous system complicating childbirth; G43.909 Migraine, unspecified, not intractable, without status migrainosus
CPT/HCPCS: 36415; 85025; 85027; 86592; 86850; 86900; 86901; 88307; J2540; J2590; J3010; J3490